=== PATIENT | female | born 1985 | race Hispanic/Latino ===

== ENCOUNTER 2020-01-26 19:24 | Emergency (ER) | payer OTHER ==
[2020-01-26] MEDS ORDERED: CLINDAMYCIN HCL 150 MG CAP ONE (20:00)
[2020-01-26] MEDS ORDERED: KETOROLAC TROMETHAMINE 60 MG/2 ML VIAL ONE (20:01)
[2020-01-26] MEDS ORDERED: LIDOCAINE HCL 2% JELLY 5 ML ONE (20:01)
== END 2020-01-26 20:17 | disposition home or self-care (01) ==
LOC: EDH 19:24
DX: K03.81 Cracked tooth (principal); K02.9 Dental caries, unspecified; K04.7 Periapical abscess without sinus
CPT/HCPCS: 96372; 99283; J1885

== ENCOUNTER 2020-04-28 19:51 | Emergency (ER) | payer OTHER ==
[2020-04-28] MEDS ORDERED: LIDOCAINE HCL-MPF 1% 2ML VIAL ONE (21:35)
[2020-04-28] MEDS ORDERED: CEFTRIAXONE SODIUM 1 GM ONE (21:36)
[2020-04-28] MEDS ORDERED: KETOROLAC TROMETHAMINE 30MG/ML ONE (21:36)
[2020-04-28] MEDS ORDERED: ACETAMINOPHEN-CODEINE 300/30MG TAB ONE (21:36)
== END 2020-04-28 21:58 | disposition home or self-care (01) ==
LOC: EDH 19:51
DX: K02.9 Dental caries, unspecified (principal); K08.89 Other specified disorders of teeth and supporting structures
CPT/HCPCS: 96372 ×2; 99284; J0696; J1885; J3490

== ENCOUNTER 2020-05-13 16:04 | Emergency (ER) | payer OTHER ==
[2020-05-13] MEDS ORDERED: CYCLOBENZAPRINE HCL 10 MG TABLET ONE (16:28)
[2020-05-13] MEDS ORDERED: KETOROLAC 60 MG VIAL (30MG/ML) ONE (16:28)
== END 2020-05-13 17:24 | disposition home or self-care (01) ==
LOC: EDH 16:04
DX: S40.011A Contusion of right shoulder, initial encounter (principal); S20.211A Contusion of right front wall of thorax, initial encounter; V49.49XA Driver injured in collision with other motor vehicles in traffic accident, initial encounter; Y93.89 Activity, other specified; Y92.89 Other specified places as the place of occurrence of the external cause; Y99.8 Other external cause status
CPT/HCPCS: 71045; 73030; 96372; 99284; J1885

== ENCOUNTER 2020-05-22 07:53 | Emergency (ER) | payer SELFPAY ==
[2020-05-22] MEDS ORDERED: CLINDAMYCIN 600 MG/D5% WATER 0 ML IV ONE (08:46)
[2020-05-22] MEDS ORDERED: ONDANSETRON HCL 4 MG/2 ML VIAL ONE ×2 (08:46→09:05)
[2020-05-22] MEDS ORDERED: KETOROLAC TROMETHAMINE 15MG/ML ONE ×2 (08:47→09:06)
[2020-05-22] MEDS ORDERED: HYDROMORPHONE HCL 0.5 MG/0.5 ML ML ONE ×2 (08:47→09:06)
[2020-05-22] MEDS ORDERED: CLINDAMYCIN 600 MG/D5% WATER 50 ML IV ONE (09:05)
[2020-05-22] MEDS ORDERED: SODIUM CHLORIDE 0.9% 0 ML IV ONE (09:06)
[2020-05-22 09:11] LABS: BASOPHILS % (AUTO) 0.6 % (0.0-5.0); HEMATOCRIT 37.4 % (36-48); LYMPHOCYTES % (AUTO) 13.5 % (21.0-51.0); MEAN CORPUSCULAR HEMOGLOBIN 28.6 pg (27.0-33.0); MEAN CORPUSCULAR HGB CONC 32.6 g/dL (32.0-36.0); MEAN CORPUSCULAR VOLUME 87.6 fL (79-99); MONOCYTES % (AUTO) 6.3 % (3.0-13.0); NEUTROPHILS % (AUTO) 78.3 % (40.0-77.0); PLATELET COUNT (AUTO) 306 K/uL (130-400); RED BLOOD CELL COUNT(AUTO) 4.27 MIL/uL (4.00-5.50); RED CELL DISTRIBUTION WIDTH 13.6 % (11.0-15.5); WHITE BLOOD COUNT (AUTO) 8.6 K/uL (4.8-10.8)
[2020-05-22 09:21] LABS: CREATININE 0.7 mg/dL (0.5-1.5); POTASSIUM 3.8 mmol/L (3.5-5.1)
[2020-05-22 09:26] LABS: ALBUMIN 4.3 g/dL (3.5-5.0); BILIRUBIN,TOTAL 0.5 mg/dL (0.2-1.0); TOTAL PROTEIN, SERUM 8.5 g/dL (6.0-8.3)
[2020-05-22] MEDS ORDERED: HYDROCODONE/ACETAMINOPHEN 10/325 MG TAB ONE (12:33)
== END 2020-05-22 12:52 | disposition home or self-care (01) ==
LOC: EDH 07:53
DX: K12.2 Cellulitis and abscess of mouth (principal)
CPT/HCPCS: 36415; 70490; 80053; 81025; 85025; 87040; 96365; 96375; 99284; J1170; J1885; J2405; J3490